=== PATIENT | female | born 1945 | race Caucasian/White ===

== ENCOUNTER → 2016-07-08 | Outpatient (CLI) | payer OTHER, MEDICARE ==
--- NOTE | 2016-07-08 15:01 | MA ---
Screening Digital Mammogram With Tomosynthesis Clinical Indications: Routine screening. Technique: Standard digital cephalocaudal and tomosynthesis mediolateral oblique projections are obt ained. The digital images were processed by the [employer] computer aided detection system. Comparison: June 2015 , 2014, 2013 and May 2012 Breast density: B; There are scattered fibroglandular densities. Findings: CAD was reviewed. No suspicious findings are identified. Impression: Negative mammogram. BI-RADS 1. Recommendation: Routine screening is recommended in one year. [facility] will send a result letter to the patient. Negative mammography should not preclude additional workup of a clinically suspicious finding. The patient's information is entered into a reminder system with a target due date for her next mammo gram.
== END ==
LOC: FIMAGING 12:43
DX: Z12.31 Encounter for screening mammogram for malignant neoplasm of breast (principal)
CPT/HCPCS: G0202

== ENCOUNTER → 2017-07-29 | Outpatient (CLI) | payer OTHER, MEDICARE | LOC: FIMAGING 12:37 | PROVIDERS: ATTEND Internal Medicine | DX: Z12.31 Encounter for screening mammogram for malignant neoplasm of breast (principal) ==

== ENCOUNTER 2018-01-10 08:51 | Emergency (ER) | payer OTHER, MEDICARE ==
[2018-01-10] MEDS ORDERED: NS 500 ML IV ONE (09:41)
[2018-01-10] MEDS ORDERED: ONDANSETRON 4 MG/2 ML VIAL IVP ONE (09:41)
[2018-01-10] MEDS ORDERED: HYDROmorphONE/DILAUDID 2 MG/ML INJ IVP ONE (09:41)
--- NOTE | 2018-01-10 09:47 | EDPHY ---
H & P Time Seen by Provider: 01/10/18 09:11 HPI/ROS: HPI Headache. 72-year-old female by private vehicle with her . This patient reports having a gradual onset headache starting yesterday late morning. She describes this as being on the top of her head and aching. She also reports having some associated neck pain. She reports that she has had this exact same symptom constellation with headache and neck pain in the past. She reports however that this has lasted longer than usual. As in the past, she has also had associated nausea but no vomiting. At the time of my evaluation she is now feeling better. She denies back pain. She denies fever. She was recently treated for urinary tract infection with nitrofurantoin. She finished her course of antibiotics recently. She denies any urinary complaints. ROS: Constitutional: No fever, no chills. No weakness. Eyes: No discharge. No changes in vision. ENT: No sore throat. No nasal congestion or rhinorrhea. Respiratory: No cough. No shortness of breath. Cardiac: No chest pain, no palpitations. Gastrointestinal: No abdominal pain, no vomiting, no diarrhea. Genitourinary: No hematuria. No dysuria or increased frequency with urination. Musculoskeletal: No back pain. As above. No myalgias or arthralgias. Skin: No rashes. Neurological: As above. No focal weakness or altered sensation. Past medical history: Hypertension. Obi-[id number] diabetes. Tachycardia. Social history: Nonsmoker. No alcohol. Here with her . Physical Exam: General Appearance: Alert, no distress. She appears well. Certainly not toxic. This patient is responding to questions appropriately and in full sentences. This patient appears well-hydrated and well-nourished. Eyes: Pupils equal and round no pallor or injection. No lid edema, erythema or injection. No photophobia. No nystagmus. Respiratory: There are no retractions, lungs are clear to auscultation with good air movement bilaterally. Cardiovascular: Regular rate and rhythm. No murmur. Gastrointestinal: Abdomen is soft and nontender, no masses, bowel sounds normal. No focal tenderness at McBurney's point. No Mancilla sign. Neurological: Motor sensory function is grossly intact. Cranial nerves are normal. Gait is normal. Skin: Warm and dry, no rashes. Musculoskeletal: Neck is supple and nontender. No pain on flexion of her neck. Extremities are symmetrical. All joints range without pain or impingement. Psychiatric: No agitation. No depression. Database: EKG: Imaging: Procedures: Emergency department course: Triage vital signs reviewed. She is mildly tachycardic at 101. Vital signs are otherwise unremarkable. She is afebrile. An IV was established. She was started on IV normal saline with 500 cc to be given over the next hour. 0.25 mg of IV hydromorphone and 4 mg of IV Zofran given for her headache and nausea. She is now hungry and asking for something to eat. She also wants to take her morning medications. She does not appear toxic. I think meningitis and encephalitis are unlikely. On my evaluation her heart rate is 92. 11:20 a.m., patient re-evaluated. She is feeling much better at this time. Denies headache. Repeat neurologic Assessment is nonfocal. No photophobia. Her neck is supple. No pain on flexion of her neck. She feels comfortable going home at this time and I feel she is safe for discharge. Follow-up and return to emergency department precautions have been discussed with her. All of her questions were answered. She was discharged from the emergency department in good condition. Her is driving. Differential Diagnosis: The differential diagnosis on this patient includes but is not limited to migraine type headache, tension headache. Meningitis, encephalitis, cavernous sinus thrombosis, sagittal sinus thrombosis, temporal arteritis, subarachnoid hemorrhage unlikely. This represents a partial list of diagnoses considered. These considerations are based on history, physical exam, past history, reassessment and diagnostic testing. Smoking Status: Never smoked Constitutional: Initial Vital Signs Temperature (C) 36.9 C 01/10/18 08:57 Heart Rate 101 H 01/10/18 08:57 Respiratory Rate 18 01/10/18 08:57 Blood Pressure 138/66 H 01/10/18 08:57 O2 Sat (%) 92 01/10/18 08:57 O2 Delivery Mode Nasal Cannula O2 (L/minute) 2 Allergies/Adverse Reactions: cephalexin [From Keflex] Allergy (Verified 01/10/18 08:56) doxycycline Allergy (Verified 01/10/18 08:56) Sulfa (Sulfonamide Antibiotics) Allergy (Verified 01/10/18 08:53) Home Medications: Medication Instructions Recorded Hydrochlorothiazide [HCTZ (*)] 25 mg PO DAILY 11/21/10 Metformin HCl [Metformin Hcl Er] mg PO DAILY 11/21/10 Potassium Bicarbonate/Cit AC 1,080 mg PO DAILY 11/21/10 [K-Lyte Tablet Eff] Valacyclovir Hcl [Valtrex] 1,000 mg PO TID 11/21/10 Lisinopril 01/10/18 Macrobid 01/10/18 Medical Decision Making - Data Points Laboratory Results: Laboratory Results 01/10/18 09:55 01/10/18 09:55 01/10/18 01/10/18 09:55 09:55 WBC 11.73 10^3/uL H 10^3/uL (3.80-9.50) RBC 4.85 10^6/uL 10^6/uL (4.18-5.33) Hgb 15.1 g/dL g/dL (12.6-16.3) Hct 44.3 % % (38.0-47.0) MCV 91.3 fL fL (81.5-99.8) MCH 31.1 pg pg (27.9-34.1) MCHC 34.1 g/dL g/dL (32.4-36.7) RDW 12.2 % % (11.5-15.2) Plt Count 281 10^3/uL 10^3/uL (150-400) MPV 9.4 fL fL (8.7-11.7) Neut % (Auto) 87.3 % H % (39.3-74.2) Lymph % (Auto) 5.3 % L % (15.0-45.0) Cuming % (Auto) 5.0 % % (4.5-13.0) Eos % (Auto) 1.9 % % (0.6-7.6) Baso % (Auto) 0.2 % L % (0.3-1.7) Nucleat RBC Rel Count 0.0 % % (0.0-0.2) Absolute Neuts (auto) 10.24 10^3/uL H 10^3/uL (1.70-6.50) Absolute Lymphs (auto) 0.62 10^3/uL L 10^3/uL (1.00-3.00) Absolute Monos (auto) 0.59 10^3/uL 10^3/uL (0.30-0.80) Absolute Eos (auto) 0.22 10^3/uL 10^3/uL (0.03-0.40) Absolute Basos (auto) 0.02 10^3/uL 10^3/uL (0.02-0.10) Absolute Nucleated RBC 0.00 10^3/uL 10^3/uL (0-0.01) Immature Gran % 0.3 % % (0.0-1.1) Immature Gran # 0.04 10^3/uL 10^3/uL (0.00-0.10) Sodium 134 mEq/L L mEq/L (135-145) Potassium 4.4 mEq/L mEq/L (3.3-5.0) Chloride 101 mEq/L mEq/L (97-110) Carbon Dioxide 24 mEq/l mEq/l (22-31) Anion Gap 9 mEq/L mEq/L (8-16) BUN 14 mg/dL mg/dL (7-23) Creatinine 0.5 mg/dL L mg/dL (0.6-1.0) Estimated GFR > 60 Glucose 148 mg/dL H mg/dL (70-100) Calcium 9.1 mg/dL mg/dL (8.5-10.4) Medications Given: Discontinued Medications Hydromorphone HCl (Dilaudid) 0.25 mg IVP EDNOW ONE Stop: 01/10/18 09:42 Last Admin: 01/10/18 10:06 Dose: 0.25 mg Sodium Chloride (Ns) 500 mls @ 0 mls/hr IV ONCE ONE; Wide Open PRN Reason: Protocol Stop: 01/10/18 09:42 Last Admin: 01/10/18 10:04 Dose: 500 mls Ondansetron HCl (Zofran) 4 mg IVP EDNOW ONE Stop: 01/10/18 09:42 Last Admin: 01/10/18 10:04 Dose: 4 mg Departure - Departure Disposition: Home, Routine, Self-Care Clinical Impression: Headache Condition: Good Instructions: Tension Headache (ED) Additional Instructions: Read and follow provided instructions. Follow-up with your primary care physician in 1-2 days for re-evaluation as discussed. Keep well hydrated. Rest today. No strenuous activity. Return to the emergency department for return of headache, vomiting, neck pain, fever or other serious concerns. Referrals: Ragini Garcia MD [Primary Care Provider] - As per Instructions
[2018-01-10 10:03] LABS: PLATELET COUNT 281 10^3/uL (150-400)
[2018-01-10 11:46] VITALS: BP 119/58
== END 2018-01-10 11:44 | disposition home or self-care (01) ==
DX: R51 Headache (principal); I10 Essential (primary) hypertension; E11.9 Type 2 diabetes mellitus without complications; R00.0 Tachycardia, unspecified
CPT/HCPCS: 96374; 96375; 99284; J1170; J2405

== ENCOUNTER 2018-01-11 11:30 | Emergency (ER) | payer OTHER, MEDICARE ==
[2018-01-11] MEDS ORDERED: EPINEPHrine 1 MG/ML INJ IM ONE (12:00)
[2018-01-11] MEDS ORDERED: methylPREDNISolone SOD SUCC 125 MG/2 ML VIAL IVP ONE (12:00)
[2018-01-11] MEDS ORDERED: RANITIDINE 50 MG/2 ML VIAL IVP ONE (12:00)
--- NOTE | 2018-01-11 12:05 | EDPHY ---
H & P Stated Complaint: c/o non itching rash and mild swelling in throat this am Time Seen by Provider: 01/11/18 11:53 HPI/ROS: CHIEF COMPLAINT: Allergic reaction HISTORY OF PRESENT ILLNESS: The patient is a 72-year-old female who comes to the emergency department concerned for an allergic reaction. She states that she developed a rash this morning and some feeling of swelling in her throat and slight shortness of breath. No fever. She finished Macrobid for urinary tract infection 2 days ago. She has multiple other antibiotic allergies. She did not have the symptoms until today. She was here yesterday complaining of a headache but states that that has resolved. She has not had a fever. No neck stiffness or pain. REVIEW OF SYSTEMS: Constitutional: denies: chills, fever, recent illness, recent injury EENTM: See HPI Respiratory: denies: cough, shortness of breath Cardiac: denies: chest pain, irregular heart rate, lightheadedness, palpitations Gastrointestinal/Abdominal: denies: abdominal pain, diarrhea, nausea, vomiting, blood streaked stools Genitourinary: denies: dysuria, frequency, hematuria, pain Musculoskeletal: denies: joint pain, muscle pain Skin: See HPI Neurological: denies: headache, numbness, paresthesia, tingling, dizziness, weakness Hematologic/Lymphatic: denies: blood clots, easy bleeding, easy bruising Immunologic/allergic: denies: HIV/AIDS, transplant EXAM: GENERAL: Well-appearing, well-nourished and in no acute distress. HEAD: Atraumatic, normocephalic. EYES: Pupils equal round and reactive to light, extraocular movements intact, sclera anicteric, conjunctiva are normal. ENT: No obvious intraoral lesions or swelling. TMs normal, nares patent, oropharynx clear without exudates. Moist mucous membranes. NECK: Normal range of motion, supple without lymphadenopathy or JVD. LUNGS: No wheezing, Breath sounds clear to auscultation bilaterally and equal. HEART: Regular rate and rhythm without murmurs, rubs or gallops. ABDOMEN: Soft, nontender, normoactive bowel sounds. No guarding, no rebound. No masses appreciated. BACK: No CVA tenderness, no spinal tenderness, step-offs or deformities EXTREMITIES: Normal range of motion, no pitting or edema. No clubbing or cyanosis. NEUROLOGICAL: Cranial nerves II through XII grossly intact. Normal speech, normal gait. 5/5 strength, normal movement in all extremities, normal sensation PSYCH: Normal mood, normal affect. SKIN: Diffuse macular nonblanching rash involving palm of hand but not soles of feet. No obvious intraoral lesions Source: Patient Exam Limitations: No limitations - Medical/Surgical History Hx Asthma: No Hx Chronic Respiratory Disease: No Hx Diabetes: Yes Hx Cardiac Disease: No Hx Renal Disease: No Hx Cirrhosis: No Hx Alcoholism: No Hx HIV/AIDS: No Hx Splenectomy or Spleen Trauma: No Other PMH: diabetes/uti - Family History Significant Family History: No pertinent family hx - Social History Smoking Status: Former smoker Alcohol Use: None Constitutional: Initial Vital Signs Temperature (C) 36.5 C 01/11/18 11:39 Heart Rate 83 01/11/18 11:39 Respiratory Rate 18 01/11/18 11:39 Blood Pressure 121/72 H 01/11/18 11:39 O2 Sat (%) 93 01/11/18 11:39 O2 Delivery Mode Room Air O2 (L/minute) 2 Allergies/Adverse Reactions: cephalexin [From Keflex] Allergy (Verified 01/11/18 11:43) doxycycline Allergy (Verified 01/11/18 11:43) Sulfa (Sulfonamide Antibiotics) Allergy (Verified 01/11/18 11:43) Home Medications: Medication Instructions Recorded Hydrochlorothiazide [HCTZ (*)] 25 mg PO DAILY 11/21/10 Metformin HCl [Metformin Hcl Er] mg PO DAILY 11/21/10 Potassium Bicarbonate/Cit AC 1,080 mg PO DAILY 11/21/10 [K-Lyte Tablet Eff] Lisinopril 01/10/18 Aspirin 81mg (*) 01/11/18 EPINEPHrine [Epipen 0.3 MG] 0.3 mg IM ONCE #2 syr 01/11/18 diphenhydrAMINE [Benadryl 50 MG 50 mg PO Q4-6PRN PRN #30 cap 01/11/18 (OTC)] predniSONE 60 mg PO DAILY #9 tab 01/11/18 Medical Decision Making ED Course/Re-evaluation: 12:40 p.m. the patient is feeling much better other than being very fatigued. Her saturations have improved in her rash is resolving and much veterinary assistant. We will continue to observe. 2:40 p.m. the patient is feeling much better. She is very fatigued. She is saturating 94% on room air. Her rash is mostly gone. No GI or respiratory symptoms. She is eager to go home. We discussed continuing Benadryl and steroids at home. She may try non drowsy and histamines as well. We discussed follow-up with an topstitcher lockstitch because the antibiotic choices for her becoming very limited. Differential Diagnosis: Partial list of the Differential diagnosis considered include but were not limited to; allergic reaction, serum syndrome, and although unlikely based on the history and physical exam, I also considered thrombocytopenia, infection. I discussed these differential diagnoses and the plan with the patient as well as the usual and expected course. The patient understands that the diagnosis is provisional and that in medicine we are not always correct and that further workup is often warranted. Usual and customary warnings were given. All of the patient's questions were answered. The patient was instructed to return to the emergency department should the symptoms at all worsen or return, otherwise to followup with the physician as we discussed. - Data Points Medications Given: Discontinued Medications Diphenhydramine HCl (Benadryl Injection) 50 mg IVP EDNOW ONE Stop: 01/11/18 12:01 Last Admin: 01/11/18 12:10 Dose: 50 mg Epinephrine HCl (Epinephrine) 0.3 mg IM EDNOW ONE Stop: 01/11/18 12:01 Last Admin: 01/11/18 12:08 Dose: 0.3 mg Methylprednisolone Sodium Succinate (Solu-Medrol) 125 mg IVP EDNOW ONE Stop: 01/11/18 12:01 Last Admin: 01/11/18 12:09 Dose: 125 mg Ranitidine HCl (Zantac) 50 mg IVP EDNOW ONE Stop: 01/11/18 12:01 Last Admin: 01/11/18 12:10 Dose: 50 mg Departure - Departure Disposition: Home, Routine, Self-Care Clinical Impression: Acute anaphylaxis Qualifiers: Encounter type: initial encounter Qualified Code(s): T78.2XXA - Anaphylactic shock, unspecified, initial encounter Condition: Fair Instructions: Anaphylaxis (ED) Referrals: Ragini Garcia MD [Primary Care Provider] - As per Instructions Prescriptions: diphenhydrAMINE [Benadryl 50 MG (OTC)] 50 mg PO Q4-6PRN PRN #30 cap PRN Reason: Itching EPINEPHrine [Epipen 0.3 MG] 0.3 mg IM ONCE #2 syr predniSONE 60 mg PO DAILY #9 tab
[2018-01-11 14:48] VITALS: BP 96/54
== END 2018-01-11 14:55 | disposition home or self-care (01) ==
DX: T78.2XXA Anaphylactic shock, unspecified, initial encounter (principal); T78.40XA Allergy, unspecified, initial encounter; Z87.891 Personal history of nicotine dependence
CPT/HCPCS: 96372; 96374; 96375; 99284; J0171; J1200; J2780; J2930

== ENCOUNTER → 2018-08-04 | Outpatient (CLI) | payer OTHER, MEDICARE | LOC: FIMAGING 11:19 | PROVIDERS: ATTEND Internal Medicine | DX: Z12.31 Encounter for screening mammogram for malignant neoplasm of breast (principal) ==